=== PATIENT | female | born 1940 | race Two or more races ===

== ENCOUNTER 2022-05-03 17:51 | Inpatient (IN) | payer OTHER ==
[~2022-05-03] VITALS: Ht 160 cm; Wt 46.7 kg
--- NOTE | 2022-05-03 18:00 | NUR ---
BIB RA[facility] from home with c/o left hip pain post [facility] ground level fall with no reported LOC. Per EMS they were called by pt's . Pt was given Fentanyl 50mcg IVP x 2 doses in route to ER. Pt states her pain is "a little better", now 09/30. Pt is on Eliquis, hx of DVT.
[2022-05-03] MEDS ORDERED: APIX2.5T MT (18:09)
[2022-05-03] MEDS ORDERED: CEFD300C3 MT (18:09)
[2022-05-03] MEDS ORDERED: DARB300D3 (18:09)
[2022-05-03] MEDS ORDERED: TRAM50TA2 MT (18:09)
[2022-05-03] MEDS ORDERED: DENO120V SQ (18:09)
[2022-05-03] MEDS ORDERED: ESCI5TAB16 MT (18:09)
[2022-05-03] MEDS ORDERED: ONDANSETRON 4 MG/2 ML VIAL IV ONE (19:00)
[2022-05-03] MEDS ORDERED: HYDROMORPHONE 1 MG/1 ML DISP.SYRIN IV ONE (19:00)
[2022-05-03] MEDS ORDERED: IV NORMAL SALINE 1000 ML BAG IV ONE (19:00)
[2022-05-03] MEDS ORDERED: HYDROMORPHONE 1 MG/1 ML DISP.SYRIN ONE (19:03)
[2022-05-03] MEDS ORDERED: ONDANSETRON 4 MG/2 ML VIAL ONE (19:03)
[2022-05-03 19:34] LABS: MEAN CORPUSCULAR HEMOGLOBIN 33.7 uug (24.7-32.8); MEAN CORPUSCULAR VOLUME 106.2 fL (75.5-95.3); PLATELET COUNT (AUTO) 114 K/uL (179-408)
[2022-05-03 19:44] LABS: CREATININE 0.6 mg/dL (0.6-1.3); POTASSIUM 4.1 mmol/L (3.5-5.1)
[2022-05-03 19:49] LABS: BILIRUBIN,DIRECT 0.1 mg/dL (0.0-0.2); BILIRUBIN,TOTAL 0.4 mg/dL (0.2-1.0); TOTAL PROTEIN, SERUM 5.8 g/dL (6.4-8.2)
[2022-05-03] MEDS ORDERED: MAGNESIUM HYDROXIDE 30 ML LIQUID UDC PO PRN (20:00)
[2022-05-03] MEDS ORDERED: REMEDY ESSENTIAL ZINC PASTE 113 GM TP PRN (20:00)
[2022-05-03] MEDS ORDERED: ONDANSETRON 4 MG/2 ML VIAL IV PRN (20:00)
[2022-05-03 20:06] LABS: *BILIRUBIN,URIN NEGATIVE (NEGATIVE); *BLOOD, URINE 3+ (NEGATIVE); *CLARITY,URINE SLIGHTLY CLOUDY (CLEAR); *COLOR,URINE YELLOW (YELLOW); *KETONES,URINE TRACE (NEGATIVE); *UROBILINOGEN,URINE 0.2 E.U./dl (NORMAL); LEUKOCYTE ESTERASE ,URINE 1+ (NEGATIVE); NITRITE, URINE NEGATIVE (NEGATIVE); UGLUCOSE NEGATIVE (NEGATIVE)
--- NOTE | 2022-05-03 20:07 | NUR ---
inserted f/c 18 fr, collected u/a as well. changed from home clothes into gown. VSS at this time.
[2022-05-03] MEDS ORDERED: CHOLECALCIFEROL 1,000 UNIT TABLET PO SCH (20:15)
[2022-05-03] MEDS ORDERED: CHOLECALCIFEROL 1,000 UNIT TABLET ONE (20:17)
--- NOTE | 2022-05-03 20:22 | NUR ---
CT abd. in process
--- NOTE | 2022-05-03 20:43 | NUR ---
Lab called patient patient is COVID positive.
[2022-05-03 20:54] LABS: IRON, SERUM 149 ug/dL (50-175)
[2022-05-03 22:39] LABS: BACTERIA,URINE MA /HPF (NONE SEEN); RBC,URINE 80-100 /HPF (0-3)
[2022-05-03 22:40] LABS: SQUAMOUS EPITHELIAL CELL,UR FEW /HPF (NONE SEEN)
--- NOTE | 2022-05-03 22:50 | NUR ---
Called 2nd floor and gave report to Polly SULTANA.
[2022-05-03 23:45] VITALS: BP 143/53
--- NOTE | 2022-05-03 23:45 | NUR ---
Admitted a 82 years old female with Dx of Left Hip Fracture and COVID +. Patient AAOx4 but MASHPEE. Hearing aide brought by at home. In no apparent distress. Denies any SOB. Complain of left hip pain. Will provide pain medication as ordered. Reposition for comfort. IV site on left AC intact and patent. Reyes catheter intact and draining via gravity. NPO status by midnight for possible surgery ambar. COVID precaution observed.
--- NOTE | 2022-05-03 23:51 | NUR ---
Called Dr. Chavez for surgery consult. Left a voicemail. Waiting for call back.
--- NOTE | 2022-05-03 23:57 | NUR ---
Pt. admitted to Med Surg, under care of Dr. Terry Belongs List completed. RN Polly made aware of patient's arrival.
[2022-05-04] MEDS: MORPHINE SULFATE 2 MG/1 ML DISP.SYRIN IV PRN ×5 (00:17→22:45)
[2022-05-04 04:50] VITALS: BP 132/53
--- NOTE | 2022-05-04 05:24 | NUR ---
Patient sleeping at this time. In no acute distress. Morphine 2mg IV given for complain of left hip pain and effective. NPO status at this time. Needs attended to and met. Reposition for comfort. Safety measure maintained. COVID precaution maintained.
[2022-05-04 08:02] LABS: HEMATOCRIT 27.7 % (31.2-41.9); MEAN CORPUSCULAR HEMOGLOBIN 33.2 uug (24.7-32.8); MEAN CORPUSCULAR VOLUME 105.6 fL (75.5-95.3); PLATELET COUNT (AUTO) 117 K/uL (179-408)
[2022-05-04 08:22] LABS: CREATININE 0.6 mg/dL (0.6-1.3); PHOSPHOROUS 2.8 mg/dL (2.5-4.9); POTASSIUM 4.3 mmol/L (3.5-5.1)
[2022-05-04 11:10] VITALS: BP 113/60
[2022-05-04] MEDS: CEFTRIAXONE 1 G in IV DEXTROSE 5% 50 ML IV SCH (11:55)
[2022-05-04] MEDS: HYDROCODONE/APAP 5-325MG TABLET PO PRN ×2 (13:29→17:33)
--- NOTE | 2022-05-04 19:30 | NUR ---
Received patient lying in bed. AAOx4. In no apparent distress. Denies any pain or SOB at this time. IV site on left AC intact and patent. Reyes catheter intact and draining via gravity. Needs assessed and attended to. COVID precaution observed. Safety measure initiated and call light within reached.
--- NOTE | 2022-05-04 19:35 | NUR ---
Informed Dr. Gracia that pt does PO intake poor per day shift RN and patient with no IV fluids running. To be NPO again after midnight for surgery ambar. Per Dr Gracia he will take a look at patient records and give order after.
[2022-05-04 20:03] VITALS: BP 108/53
[2022-05-04] MEDS: IV D5/ 0.9% NACL 1,000 ML IV PRN (22:45)
--- NOTE | 2022-05-05 05:48 | NUR ---
In no acute distress. Morphine 2mg IV given for complain of left hip pain and effective. NPO status at this time. IV site on left AC intact and patent. IVF infusing. Needs attended to and met. Safety measure maintained. COVID precaution maintained. Call light within reached.
[2022-05-05 05:50] VITALS: BP 128/58
[2022-05-05 07:37] LABS: HEMATOCRIT 26.9 % (31.2-41.9); MEAN CORPUSCULAR HEMOGLOBIN 34.4 uug (24.7-32.8); MEAN CORPUSCULAR VOLUME 105.2 fL (75.5-95.3); PLATELET COUNT (AUTO) 155 K/uL (179-408)
[2022-05-05 07:59] LABS: CREATININE 0.7 mg/dL (0.6-1.3); PHOSPHOROUS 1.8 mg/dL (2.5-4.9); POTASSIUM 3.9 mmol/L (3.5-5.1)
[2022-05-05 08:00] VITALS: BP 145/56
[2022-05-05] MEDS: ESCITALOPRAM OXALATE 10 MG TABLET PO SCH (08:11)
[2022-05-05] MEDS: MORPHINE SULFATE 2 MG/1 ML DISP.SYRIN IV PRN ×2 (09:18→17:32)
[2022-05-05 11:15] VITALS: BP 135/47
[2022-05-05] MEDS: CEFTRIAXONE 1 G in IV DEXTROSE 5% 50 ML IV SCH (11:26)
[2022-05-05] MEDS: ACETAMINOPHEN 325 MG TABLET PO PRN (13:35)
--- NOTE | 2022-05-05 13:35 | NUR ---
TEMP 100. PRN TYLENOL ADMIN.
[2022-05-05 16:25] VITALS: BP 125/57
[2022-05-05] MEDS ORDERED: SODIUM PHOSPHATE MM 15 MMOL in IV NORMAL SALINE 250 ML IV ONE (17:00)
--- NOTE | 2022-05-05 19:30 | NUR ---
Patient AAOX3. In no acute distress. No complain of pain or SOB at this time. Iv site on left AC and left hand intact and patent. Needs attended to and met. Reposition for comfort. Safety measure maintained and call light within reached. COVID precaution maintained.
[2022-05-05 20:00] VITALS: BP 114/63
[2022-05-05] MEDS: IV D5/ 0.9% NACL 1,000 ML IV PRN (20:19)
[2022-05-05] MEDS: HYDROCODONE/APAP 5-325MG TABLET PO PRN (21:35)
[2022-05-06] MEDS: MORPHINE SULFATE 2 MG/1 ML DISP.SYRIN IV PRN ×4 (04:43→23:16)
[2022-05-06 05:04] VITALS: BP 130/61
--- NOTE | 2022-05-06 07:00 | NUR ---
In no acute distress. [place] 1 tab PO and Morphine 2mg IV per order given for complain of left hip pain and effective. IV site on left AC and left hand intact and patent. IVF infusing. Needs attended to and met. Safety measure maintained. COVID precaution maintained. Call light within reached.
[2022-05-06 08:00] VITALS: BP 120/51
[2022-05-06] MEDS: HYDROCODONE/APAP 5-325MG TABLET PO PRN ×2 (09:17→20:06)
[2022-05-06] MEDS: ESCITALOPRAM OXALATE 10 MG TABLET PO SCH (09:17)
[2022-05-06] MEDS: ACETAMINOPHEN 325 MG TABLET PO PRN (09:23)
[2022-05-06] MEDS: CEFTRIAXONE 1 G in IV DEXTROSE 5% 50 ML IV SCH (11:00)
[2022-05-06 13:08] VITALS: BP 122/52
[2022-05-06 17:00] VITALS: BP 96/59
[2022-05-06] MEDS ORDERED: ENSURE ENLIVE (VAN) 240 ML LIQUID PO SCH (17:00)
[2022-05-06] MEDS ORDERED: NEUTRA PHOS PACKET PO SCH (19:30)
[2022-05-06 20:00] VITALS: BP 119/42
--- NOTE | 2022-05-07 00:30 | NUR ---
Pt transferred to [facility], bed 3240, under Dr. Crockett. Report given to Ron SULTANA. Pt left in stable condition. No distress noted. Covid precautions kept in place. Dr. Jade notified of transfer.
== END 2022-05-07 00:30 | disposition short-term general hospital (02) | DRG 535 ==
LOC: ER 17:51 → MED 20:00
PROVIDERS: ADMIT Nurse Practitioner Acute Care; ATTEND Nurse Practitioner Acute Care
DX: S72.145A Nondisplaced intertrochanteric fracture of left femur, initial encounter for closed fracture (principal); U07.1 COVID-19; E44.0 Moderate protein-calorie malnutrition; D68.69 Other thrombophilia; E87.1 Hypo-osmolality and hyponatremia; Z68.1 Body mass index [BMI] 19.9 or less, adult; E83.51 Hypocalcemia; D64.9 Anemia, unspecified; Z74.09 Other reduced mobility; E88.09 Other disorders of plasma-protein metabolism, not elsewhere classified; E86.1 Hypovolemia; D53.1 Other megaloblastic anemias, not elsewhere classified; W19.XXXA Unspecified fall, initial encounter; Y93.9 Activity, unspecified; Y92.009 Unspecified place in unspecified non-institutional (private) residence as the place of occurrence of the external cause; Z79.01 Long term (current) use of anticoagulants; Z86.718 Personal history of other venous thrombosis and embolism
CPT/HCPCS: 36415; 51702; 70030-TC; 71045; 73502; 83550; 83735; 84100; 85025; 85730; 86850; 86900; 86901; 86920; 93005; 93307; A4663; G0378; J0696; J1170; J2270; J2405; J3490; J7040; J7042